=== PATIENT | female | born 1975 | race Caucasian/White ===

== ENCOUNTER 2020-08-22 10:07 | Observation (INO) ==
[2020-08-22 11:30] LABS: ABS Basophils 0.1 10^3/ul (0-0.2); ABS Eosinophils 0.1 10^3/ul (0-0.6); ABS Lymphocytes 1.3 10^3/ul (1.0-4.8); ABS Monocytes 0.5 10^3/ul (0-0.8); ABS Neutrophils 4.8 10^3/ul (1.5-7.7); Eosinophil % 0.8 %; Hematocrit 40 % (35-47); Hemoglobin 13.7 g/dL (12.0-16.0); Lymphocyte % 19.1 %; Mean Corpuscular HGB Conc 34 g/dL (31-36); Mean Corpuscular Hemoglobin 30 pg (27-31); Mean Corpuscular Volume 88 fL (80-97); Mean Platelet Volume 8.1 fL (7.4-10.4); Nucleated Red Blood Cells % 0.1; Platelet Count 264 10^3/uL (150-450); Red Blood Count 4.52 10^6 /uL (3.70-4.87); Red Cell Distribution Width 12 % (10-15); White Blood Count 6.7 10^3/uL (3.5-10.8)
[2020-08-22 11:36] LABS: INR 1.16 (0.82-1.09)
[2020-08-22 12:15] LABS: ALT 13 U/L (7-52); AST 21 U/L (13-39); Albumin 4.8 g/dL (3.2-5.2); Albumin/Globulin Ratio 1.8 (1-3); Alkaline Phosphatase 58 U/L (34-104); Anion Gap 8 mmol/L (2-11); BUN/Creatinine Ratio 14.3 (8-20); Blood Urea Nitrogen 10 mg/dL (6-24); CO2 Carbon Dioxide 27 mmol/L (22-32); Chloride 106 mmol/L (101-111); EGFR Non-African American 90.1 (>60); Globulin 2.7 g/dL (2-4); Glucose 99 mg/dL (70-100); Potassium 3.9 mmol/L (3.5-5.0); Sodium 141 mmol/L (135-145); Total Protein 7.5 g/dL (6.4-8.9)
[2020-08-22 12:38] LABS: C Reactive Protein < 1.00 mg/L (<8.01)
[2020-08-22 12:53] LABS: HCG Pregnancy 2.66 mIU/mL
[2020-08-22 13:00] LABS: TSH Ultra Thyroid Stim Horm 2.21 mcIU/mL (0.34-5.60)
[2020-08-22 13:11] LABS: Vitamin B12 1202 pg/mL (180-914)
[2020-08-22 13:14] LABS: Vitamin D Total 25(OH) 32.4 ng/mL (20-50)
[2020-08-22 13:42] LABS: Magnesium 1.8 mg/dL (1.9-2.7)
[2020-08-22 14:26] LABS: Erythrocyte Sed Rate 5 mm/Hr (0-19)
[2020-08-22 15:17] LABS: Body Fluid Source Cerebral Spinal
[2020-08-22 15:45] LABS: CSF Glucose 63 mg/dL (40-70)
[2020-08-22 19:46] VITALS: BP 108/71
[2020-08-22] MEDS ORDERED: Progesterone 100 mg CAP (NF) PO SCH (21:00)
[2020-08-23 15:30] LABS: CSF VDRL Negative (Negative)
[2020-08-23 18:38] LABS: Copper Level 1.02 mcg/mL (0.75-1.45)
[2020-08-24 12:29] LABS: Albumin 3.9 g/dL (3.4-4.7); Albumin/Globulin Ratio 1.15; Gamma Globulin 1.1 g/dL (0.6-1.6); Total Protein(PEP) 7.2 g/dL (6.3 - 7.9)
== END 2020-08-22 21:30 | disposition home or self-care (01) ==
LOC: ED 10:07 → MED 10:07
PROVIDERS: ADMIT Pediatrics; ATTEND Internal Medicine